=== PATIENT | male | born 1965 | race Caucasian/White ===

== ENCOUNTER 2022-04-22 10:02 | Outpatient (CLI) | payer MEDICARE, BC, SELFPAY ==
[2022-04-22 13:16] LABS: Albumin* 4.7 g/dL (3.3-5.0); Chloride* 103 mmol/L (96-114)
[2022-04-22 13:17] LABS: Potassium* 5.3 mmol/L (3.6-5.1); Sodium* 139 mmol/L (135-149)
[2022-04-22 13:19] LABS: Bilirubin Total* 0.7 mg/dL (0.1-1.5); Carbon Dioxide* 29 mmol/L (20-32); Cholesterol* 211 mg/dL (90-199); Creatinine* 0.9 mg/dL (0.5-1.5); Estimated Glomerular Filt Rate 101 ml/min; Total Protein* 7.4 g/dL (6.0-8.3)
[2022-04-22 13:20] LABS: Alanine Aminotransferase* 6 U/L (4-50); Alkaline Phosphatase* 73 U/L (40-150); Aspartate Amino Transferase* 25 U/L (12-35); Blood Urea Nitrogen* 25 mg/dL (7-30); Calcium* 9.1 mg/dL (8.4-10.6); Glucose* 104 mg/dL (60-115); Triglycerides* 121 mg/dL (40-149)
[2022-04-22 13:21] LABS: HDL Cholesterol* 42 mg/dL (>=40); LDL Cholesterol Calculated 145 mg/dL (<100)
[2022-04-22 13:45] LABS: PSA Screen* 1.03 ng/mL (0.10-4.00)
== END 2022-04-22 10:03 | disposition home or self-care (01) ==
PROVIDERS: PCP Family Medicine; Visit Provider Family Medicine
DX: Z00.00 Encounter for general adult medical examination without abnormal findings (principal); E78.5 Hyperlipidemia, unspecified; Z12.5 Encounter for screening for malignant neoplasm of prostate; G20 Parkinson's disease; I10 Essential (primary) hypertension; G47.33 Obstructive sleep apnea (adult) (pediatric); K21.9 Gastro-esophageal reflux disease without esophagitis; E55.9 Vitamin D deficiency, unspecified
CPT/HCPCS: 80053; 80061; 84153

== ENCOUNTER 2023-04-20 10:19 | Outpatient (CLI) | payer MEDICARE, BC, SELFPAY | END 2023-04-20 10:20 | disposition home or self-care (01) | LOC: LONREF 10:20 | PROVIDERS: PCP Family Medicine; Visit Provider Family Medicine | DX: E78.5 Hyperlipidemia, unspecified (principal); I10 Essential (primary) hypertension | CPT/HCPCS: 80061 ==

== ENCOUNTER 2023-10-14 07:08 | Outpatient (CLI) | payer MEDICARE, BC, SELFPAY ==
--- NOTE | 2023-10-14 08:41 | W.ANESCHARGE ---
Anesthesia Charges Start Date/Time Anesthesia Start Date: 10/14/23 Anesthesia Start Time: 08:05 Stop Date/Time Anesthesia Stop Date: 10/14/23 Anesthesia Stop Time: 08:38
--- NOTE | 2023-10-14 10:14 | W.ANESCHARGE ---
Anesthesia Charges Start Date/Time Anesthesia Start Date: 10/14/23 Anesthesia Start Time: 08:05 Stop Date/Time Anesthesia Stop Date: 10/14/23 Anesthesia Stop Time: 08:38
--- NOTE | 2023-10-14 10:15 | W.ANESCHARGE ---
Anesthesia Charges Start Date/Time Anesthesia Start Date: 10/14/23 Anesthesia Start Time: 08:05 Stop Date/Time Anesthesia Stop Date: 10/14/23 Anesthesia Stop Time: 08:38
== END 2023-10-14 07:09 | disposition home or self-care (01) ==
PROVIDERS: PCP Family Medicine; Visit Provider Surgery
DX: Z12.11 Encounter for screening for malignant neoplasm of colon (principal); K63.5 Polyp of colon; K62.1 Rectal polyp
CPT/HCPCS: 00811; 45385; 88305; J2704

== ENCOUNTER 2024-01-17 08:53 | Outpatient (CLI) | payer MEDICARE, BC, SELFPAY | END 2024-01-17 08:54 | disposition home or self-care (01) | PROVIDERS: PCP Family Medicine; Visit Provider Family Medicine | DX: R60.0 Localized edema (principal) | CPT/HCPCS: 80048; 84443 ==

== ENCOUNTER 2024-07-03 11:56 | Outpatient (CLI) | payer MEDICARE, BC, SELFPAY | END 2024-07-03 11:57 | disposition home or self-care (01) | PROVIDERS: PCP Family Medicine; Visit Provider Family Medicine | DX: E78.5 Hyperlipidemia, unspecified (principal); I10 Essential (primary) hypertension; Z12.5 Encounter for screening for malignant neoplasm of prostate | CPT/HCPCS: 80048; 80061; G0103 ==

== ENCOUNTER 2024-11-23 08:45 | Day surgery (SDC) | payer MEDICARE, BC, SELFPAY ==
[2024-11-23] VITALS (11 sets, daily range): BP systolic 81–149; BP diastolic 52–97; PULSE 55–76; RESP 14–16; TEMP 36.3–36.4; O2SAT 92–100; BMI 36.4
[2024-11-23] MEDS: OXYCODONE (CR) 10 MG TAB.ER.12H PO (09:12)
[2024-11-23] MEDS: ACETAMINOPHEN 500 MG TABLET 1000 MG PO (09:32)
[2024-11-23] MEDS: CELECOXIB 200 MG CAPSULE PO (09:32)
[2024-11-23] MEDS: SODIUM CHLORIDE 0.9 % (FLUSH) 10 ML SYRINGE IVF (09:49)
[2024-11-23] MEDS: LACTATED RINGERS 1000 ML 1,000 ML 100 ML IV ×2 (09:49→12:21)
--- NOTE | 2024-11-23 09:57 | SUR.PREOP ---
TIME?OUT:?0958 PT/RN/MDA?VERIFICATION?OF?SURGICAL?SITE,?PROCEDURE,?AND?CONSENT OBTAINED?PRIOR?TO?INVASIVE?PROCEDURE.
[2024-11-23] MEDS: fentaNYL 100 MCG/2 ML inj IVP (10:00)
[2024-11-23] MEDS: MIDAZOLAM HCL 1 MG/ML inj IVP (10:00)
--- NOTE | 2024-11-23 10:15 | P.NB_ITS ---
Nerve Block Nerve Block Time Seen by Provider: 10:05 Date Seen: 11/23/24 Type of block requested by surgeon for post-operative analgesia: axillary Side: left Time out performed: Yes Verification of patient name: Yes Verification of date of : Yes Site marking: site marked Name of person performing procedure: Mode Continuous monitoring Was continuous monitoring of O2 sat, B/P, mens locker room attendant, recorded every 15 minutes?: Yes Procedure Checklist: sterile prep, needles and gloves Ultrasound guided. Images saved: Yes Medications given in 5ml increments after negative aspiration: Ropivicaine %: 0.5 mL: 30 Needle gauge: 22 Patient tolerated procedure well: Yes Additional comments: Needle noted adjacent to nerve Block Charges Block Charge (with Pro Fee): Brachial Plexus Use of Ultrasound Machine for Block: Yes- US Guidance/pain block
--- NOTE | 2024-11-23 10:15 | P.ANES_ITS ---
Anesthesia Charges Start Date/Time Anesthesia Start Date: 11/23/24 Anesthesia Start Time: 10:27 Stop Date/Time Anesthesia Stop Date: 11/23/24 Anesthesia Stop Time: 12:13 Coding CPT Codes CPT Codes: ANESTH BICEPS TENDON REPAIR - 52681 ([id number]) P3 - PATIENT W/SEVERE SYS DISEASE, QK - LOOP MACHINE OPERATOR 2-4 CNCRNT ANES PROC, QX - NUT SORTER OPERATOR SVC W/ MD MED DIRECTION
--- NOTE | 2024-11-23 10:15 | W.ANESCHARGE ---
Anesthesia Charges Start Date/Time Anesthesia Start Date: 11/23/24 Anesthesia Start Time: 10:27 Stop Date/Time Anesthesia Stop Date: 11/23/24 Anesthesia Stop Time: 12:13 Coding CPT Codes CPT Codes: ANESTH BICEPS TENDON REPAIR - 40609 ([id number]) P3 - PATIENT W/SEVERE SYS DISEASE, QK - [employer] 2-4 CNCRNT ANES PROC, QX - CLOTH NEUTRALIZER SVC W/ MD MED DIRECTION
--- NOTE | 2024-11-23 11:49 | PM.ORPRC ---
Procedure Note Date of procedure: 11/23/24 Procedure: PREOPERATIVE DIAGNOSIS: Left upper extremity distal biceps tendon tear POSTOPERATIVE DIAGNOSIS: Left upper extremity distal biceps tendon tear NAME OF OPERATION: Primary Repair SURGEON: Gustavo Saravia MD BATTERY STACKER: Sarah Lane PA-C ANESTHESIA: Axillary block plus monitored anesthesia care ESTIMATED BLOOD LOSS: 5 mL. COMPLICATIONS: None. SPECIMENS: None. DRAINS: None. PREOPERATIVE ANTIBIOTICS: Ancef 2 grams Provider Operated C-arm: C-arm fluoroscopy operated by Gustavo Saravia MD for distal biceps repair. Nine C-arm spot images were obtained. Fluoroscopy time was 10 seconds. INDICATIONS: The patient is a 59-year-old male with a history of a left elbow injury, sustaining full-thickness disruption of the distal biceps tendon. Operative intervention was recommended. The risks, benefits and expected outcomes were discussed in detail. These included but were not limited to: Infection, bleeding, injury to blood vessel or nerve, venous thromboembolism. All questions were answered to their satisfaction. Use of an assistant child care teacher was necessary throughout the case for patient positioning and safety, soft tissue retraction and closure. PROCEDURE: An axillary block was placed by Anesthesia. The patient is placed supine on the operating room table. IV sedation was administered. The left upper extremity was prepped and draped in the usual sterile fashion. The limb was exsanguinated with the Jorge bandage. The pneumatic tourniquet was inflated to 200 mm of mercury. A transverse incision was made 4 cm distal to the antecubital crease. Subcutaneous dissection was taken with tenotomy scissors to the antecubital veins which were carefully preserved throughout the case. The lateral antebrachial cutaneous nerve was not seen during the case. Dissection was carried proximally, to the biceps tendon. We debrided the distal end of biceps tendon and placed a whipstitch with #2 FiberWire suture. There were a few remaining fibers of the biceps still attached to the insertion. We followed them down with blunt dissection to the radial tuberosity. The tuberosity was debrided with the Trista rongeur and joker elevator. The forearm was placed in maximum supination. We drilled a bicortical guide pin through the radial tuberosity. Its placement was confirmed with the image intensifier. We drilled an 8 mm unicortical socket. We placed the button on the limbs of the whipstitch and advanced it into the socket through the deep guide pin hole and flipped it on the far cortex of proximal radius. Its placement was confirmed with the image intensifier. We kept the forearm in maximum supination and flexed the elbow while retracting the limbs of the suture. This advanced the distal biceps tendon into the socket to a depth of 15 mm. We placed 1 limb of the suture through the tendon and tied several knots over the top of the tendon. We placed an 7 mm x 10 mm peek interference screw over the radial side of the tendon, pushing it ulnarly. We tied several knots over the top of the screw. This provides an excellent repair of the distal biceps tendon to its anatomic insertion. The wound was irrigated with normal saline. Subcutaneous tissues were closed with a 2-0 Vicryl. Skin was closed with a 3-0 Monocryl in a subcuticular fashion. A dry dressing and sling were applied. Sponge and needle counts were correct x2. The patient tolerated the procedure well. There were no apparent complications. They were carefully transferred to the hospital bed and taken to the postanesthesia care unit in satisfactory condition. PLAN: The patient will be discharged to home. They will follow up in the office next week for a wound check and an AP and lateral view of the elbow, prior to being seen, in preparation for occupational therapy. We will begin gentle active range of motion immediately.
--- NOTE | 2024-11-23 12:19 | P.ANES_ITS ---
Anesthesia Charges Start Date/Time Anesthesia Start Date: 11/23/24 Anesthesia Start Time: 10:27 Stop Date/Time Anesthesia Stop Date: 11/23/24 Anesthesia Stop Time: 12:13 Coding CPT Codes CPT Codes: ANESTH BICEPS TENDON REPAIR - 10863 ([id number]) P3 - PATIENT W/SEVERE SYS DISEASE, QK - UPPERS EDGE BURNISHER 2-4 CNCRNT ANES PROC, QX - COLLATERAL ANALYST SVC W/ MD MED DIRECTION
--- NOTE | 2024-11-23 12:19 | W.ANESCHARGE ---
Anesthesia Charges Start Date/Time Anesthesia Start Date: 11/23/24 Anesthesia Start Time: 10:27 Stop Date/Time Anesthesia Stop Date: 11/23/24 Anesthesia Stop Time: 12:13 Coding CPT Codes CPT Codes: ANESTH BICEPS TENDON REPAIR - 23280 ([id number]) P3 - PATIENT W/SEVERE SYS DISEASE, QK - WATER SOFTENER SERVICER AND INSTALLER 2-4 CNCRNT ANES PROC, QX - TAR PROCESSING TECHNICIAN SVC W/ MD MED DIRECTION
--- NOTE | 2024-11-23 13:59 | SUR.PHASEII ---
patient vitally stable. patient's stated he was behind on his parkinsons medications. patient was very stiff and required a 3 person assist. patients stated she felt safe taking him home and stated that it was not uncommon for him to be behind on his meds. confirmed with patient and patients that they have adequate help when they get home. patient discharged in stable condition.
== END 2024-11-23 14:03 | disposition home or self-care (01) ==
LOC: OR 08:46
PROVIDERS: PCP Family Medicine; Visit Provider Orthopaedic Surgery
PROC: (CPT 24341; principal; 2024-11-23 10:15)
DX: S46.212A Strain of muscle, fascia and tendon of other parts of biceps, left arm, initial encounter (principal); G89.18 Other acute postprocedural pain
CPT/HCPCS: 24342; 01716; 64415; 73070; 76000; 76942; A9270; C1713; J2250; J2704; J2795; J3010; J7120

== ENCOUNTER 2025-01-17 08:15 | Outpatient (RCR) | payer MEDICARE, BC, SELFPAY ==
--- NOTE | 2024-12-04 11:06 | OT.OPOE ---
OT Outpatient Ortho Eval OT Outpatient Ortho Eval* Start: 12/04/24 07:44 Freq: Status: Active Protocol: Document 12/04/24 07:44 DANE (Rec: 12/04/24 11:03 DANE [id number]) E-signed By Nel Sullivan, OTR/L, CLT OT OP Ortho Eval Details Complexity Complexity Medium Insurance Information Insurance Information [employer] Outpatient History/Precautions Current Condition/Medical Diagnosis Referring Provider Sharon Rosen PA-C Medical Diagnoses Z98.890 Other specified postprocedural states L UE distal biceps tendon tear repair (11/23/[address] Gustavo Saravia) Treatment Diagnosis R60.0 Localized Edema M25.522 Pain in Left Elbow M25.622 Stiffness in Left elbow Date of Onset 11/23/24 Precautions Lifting Restrictions Other Precautions He will wear the sling for up to 6 weeks (01/04/25), but early mobilization protocols allow for self weaning from the sling and active motion as tolerated during this period. This approach can potentially lead to better functional outcomes without increasing the risk complications. He will return to clinic in [address] Saravia or sooner if he has any questions or concerns. (scheduled for at 9:50 am) -Patient has Parkinson's ( first dx 39 years old) Other Conditions PMH includes but is not limited to: History of surgery on upper extremity (Acute 11/23/24) Left upper extremity distal biceps tendon tear (Dr. Saravia , 11/23/2024) Z98.890 - Other specified postprocedural states (ICD-10) Pre-op examination (Acute) Z01.818 - Encounter for other preprocedural examination (ICD -10) Rupture of left distal biceps tendon (Acute) S46.212A - Strain of muscle, fascia and tendon of other parts of biceps, left arm, initial encounter (ICD-10) Parkinson's disease (Acute) Deep brain stimulator is in place, with good benefit G20 - Parkinson's disease (ICD -10) Obstructive sleep apnea syndrome (Acute) On CPAP, 12 cm H2O G47.33 - Obstructive sleep apnea (adult) (pediatric) (ICD -10) Hypertension (Acute) I10 - Essential (primary) hypertension (ICD-10) Hyperlipidemia (Acute) Dyslipidemia E78.5 - Hyperlipidemia, unspecified (ICD-10) Edema (Acute) R60.9 - Edema, unspecified ( ICD-10) Anxiety (Acute) F41.9 - Anxiety disorder, unspecified (ICD-10) Nightmares (Acute) F51.5 - Nightmare disorder ( ICD-10) Herniated disc (Acute) L4-5 GERD (gastroesophageal reflux disease) (Acute) K21.9 - Gastro-esophageal reflux disease without esophagitis (ICD-10) Sciatica (Acute) Rt leg M54.30 - Sciatica, unspecified side (ICD-10) Adenomatous colon polyp (Acute ) D12.6 - Benign neoplasm of colon, unspecified (ICD-10) Vitamin D deficiency (Acute) E55.9 - Vitamin D deficiency, unspecified (ICD-10) Multiple pulmonary nodules ( Acute) R91.8 - Other nonspecific abnormal finding of lung field (ICD-10) Diverticulosis (Acute) K57.90 - Diverticulosis of intestine, part unspecified, without perforation or abscess without bleeding Home Medication List: aspirin 81 mg PO .MWF carbidopa-levodopa 25-100 mg 1 tab PO .5 X Daily carbidopa-levodopa 50-200 mg ER 1 tab PO BID clonazepam 1 mg PO .Bedtime as needed PRN escitalopram oxalate 10 mg PO DAILY gabapentin 300 mg PO QHS lisinopril 20 mg PO QDAY omeprazole 40 mg PO DAILY oxycodone 5 mg PO Q4H PRN rivastigmine tartrate 3 mg PO BID ropinirole ER 1 mg PO .5 X Daily rosuvastatin 10 mg PO QDAY Medical/Functional History Medical History Reviewed Yes Prior Level of Function/Mobility Alysa is helping out with IADLs Social History Employment Status Retired Current Occupation Retired Public Service Administrator Ortho Subjective Subjective Subjective 59 year old right hand dominant male had a fall on . He reached out to grab something to keep from falling and heard and felt a pop in his L biceps and noted loss of his biceps contour. He has never injured this arm or had surgery previously. They were unable to get an MRI due to his deep brain stimulator. Ortho provider scheduled patient for a left upper extremity distal biceps tendon repair on November 23, 2024 . Patient had his Ortho 1 week post op apt with PA on with X-rays that reported; AP and Lateral views of the left elbow were obtained on 11/29/2024 from [facility]. These show the tunnel and button remain well placed. Precautions/ restrictions written in provider's note state: He will wear the sling for up to 6 weeks (01/04/25), but early mobilization protocols allow for self weaning from the sling and active motion as tolerated during this period. This approach can potentially lead to better functional outcomes without increasing the risk complications. He will return to clinic in [address] Saravia or sooner if he has any questions or concerns. (scheduled for at 9:50 am). Pain Assessment Pain Pain Yes Pain Comments -12/02 with movement, not sleeping well (alternates between the couch and his bed) Range of Motion and Strength Elbow/Forearm Range of Motion and Strength Elbow/Forearm Range of Motion and L elbow 90-120 degrees Strength pronation is full and supination is at 37 degrees Wrist Range of Motion and Strength Wrist Range of Motion and Strength L wrist flexion 42 degrees L wrist extension 49 degrees L wrist ulnar and radial deviation are WFL OT Objective Data Observations/Posture/Limb Appearance Objective Observations L UE Examination of the left upper extremity shows incision is healing well. There is no erythema or drainage or sign of infection. Ecchymosis is present. Edema is present about the upper arm, forearm, hand fingers. Skin/Wounds/Edema Comments Firm, dense edema at the area of the incision (linn side of the forearm) with increased edema in the upper arm, just proximal of the elbow crease. Patient comments that the edema in his L hand and fingers is much less than it was 6 days ago. Additional Information Objective Additional Information Able to flex his elbow. He is not able to fully extend his elbow. He is able to slightly supinate and he is able to easily pronate the wrist. He is able to make a full fist and fully extend the fingers. OT Problems Problems Problems Decreased Strength,Decreased Range of Motion,Pain,Lifting, Gripping,Pinching Problems Comments *Patient is reporting a lot of pain in the L hand middle digit (it is swollen), possible that he jammed this finger or strained connective tissue during his fall. He is able to make a fist with the L hand but reported that the flexion (bending of the middle finger) was painful, especiallly around the PIP joint Other Problems Opening Containers,Dressing, Sleeping Patient Potential Good Assessment Assessment Assessment 59 year old right hand dominant male had a fall on . He reached out to grab something to keep from falling and heard and felt a pop in his L biceps and noted loss of his biceps contour. He has never injured this arm or had surgery previously. They were unable to get an MRI due to his deep brain stimulator. Ortho provider scheduled patient for a left upper extremity distal biceps tendon repair on November 23, 2024 . Patient had his Ortho 1 week post op apt with PA on with X-rays that reported; AP and Lateral views of the left elbow were obtained on 11/29/2024 from [facility]. These show the tunnel and button remain well placed. Precautions/ restrictions written in provider's note state: He will wear the sling for up to 6 weeks (01/04/25), but early mobilization protocols allow for self weaning from the sling and active motion as tolerated during this period. This approach can potentially lead to better functional outcomes without increasing the risk complications. He will return to clinic in [address] Saravia or sooner if he has any questions or concerns. (scheduled for at 9:50 am). Skilled OT is necessary to address the deficits patient is experiencing with his daily routines: ADLs/IADLS. This OT POC to work on improving AROM, decreasing edema and pain, education to patient and his caregivers (spouse: Alysa) on the process of healing post surgical repair; development and advancing HEP as indicated . Occupational Therapy Treatment Plan - OP Potential Rehabilitation Potential Good Barriers Barriers to goal attainment Medication comorbidities that may impact treatment plan include but are not limited to : Medical Dx: Parkinson's Disease. Set Goals Goals Set with Patient Yes Goals Goals 1. Through skilled therapy treatment, patient will gain knowledge in order to promote healing of injury through the control of inflammation in order to return L (non dominant) hand to normal, pain free function 2. Through active participation in skilled OT sessions, patient will maximize post-surgical wound healing to prevent infection, minimize functional/cosmetic sequelae of scarring. 3. Patient will be discharged from therapy once their have achieved >90% of normal AROM and Strength in the L UE. 4. Patient to sleep uninterrupted for 5 hours without being awakened by his pain in the L UE. 5. Patient will wean from the L UE arm sling within 6 weeks in order to resume using his L arm again. Target Date 8 weeks Treatment Plan Treatment Plan Evaluation,Edema Control,Joint Mobilization,Manual Therapy, Wound Care/Scar Management, Therapeutic Exercise,Self Care /Home Management,Education Expected Frequency 1-2x Week Expected Duration 12 Home Program Home Program Home Program Initiated Home Program Specifics Access Code: [email or web address] URL: [email or web address] Date: 12/04/2024 Prepared by: Nel Sullivan Exercises - Seated Scapular Retraction - 1 x daily - 7 x weekly - 3 sets - 10 reps - Supported Elbow Flexion Extension PROM - 1 x daily - 7 x weekly - 3 sets - 10 reps - Seated Forearm Pronation and Supination AROM - 1 x daily - 7 x weekly - 3 sets - 10 reps - Wrist AROM Flexion Extension - 1 x daily - 7 x weekly - 3 sets - 10 reps - Wrist AROM Radial Ulnar Deviation - 1 x daily - 7 x weekly - 3 sets - 10 reps Certification Certification Statement I Certify That: Therapy Services Provided, Therapy Plan Established, Therapy Plan Reviewed Certification Information Clinic ID # [id number] Initial Certification Date 12/04/24 Recertification Due Date 03/04/25 Provider Signature Required Yes Provider Signature Shows Agreement With POC & Medical Necessity Physician NPI Number Write NPI# Here Physician Comment/Change Comment or Changes Physician Signature & Date Requested Please Sign/Date Here
== END 2025-04-17 10:12 | disposition home or self-care (01) ==
PROVIDERS: PCP Family Medicine; Visit Provider Physician Assistant
DX: Z48.89 Encounter for other specified surgical aftercare (principal); R60.0 Localized edema; M25.522 Pain in left elbow; Z51.89 Encounter for other specified aftercare
CPT/HCPCS: 97110; 97140; 97166; X5282